=== PATIENT | female | born 1975 | race Caucasian/White ===

== ENCOUNTER 2016-12-13 18:56 | Emergency (ER) | payer MEDICAID ==
[~2016-12-13] VITALS: Ht 162.6 cm; Wt 66.7 kg
[2016-12-13] MEDS ORDERED: KETOROLAC TROMETHAMINE INJ 30 MG/ML VIAL ONE (20:26)
[2016-12-13] MEDS ORDERED: METOCLOPRAMIDE HCL 10 MG/2 ML VIAL ONE (20:26)
[2016-12-13] MEDS ORDERED: diphenhydrAMINE HCL 50 MG/ML VIAL ONE (20:26)
[2016-12-13] MEDS ORDERED: KETOROLAC TROMETHAMINE INJ 30 MG/ML VIAL IV ONE (20:30)
[2016-12-13] MEDS ORDERED: diphenhydrAMINE HCL 50 MG/ML VIAL IV ONE (20:30)
[2016-12-13] MEDS ORDERED: METOCLOPRAMIDE HCL 10 MG/2 ML VIAL IV ONE (20:30)
[2016-12-13 21:06] VITALS: BP 130/81
== END 2016-12-13 21:08 | disposition home or self-care (01) ==
LOC: ER 19:00
DX: R51 Headache (principal)
CPT/HCPCS: 84703; 96374; 96375; 99284; A4606; J1200 ×2; J1885 ×2; J2765 ×2; Z7610

== ENCOUNTER 2023-02-19 21:01 | Emergency (ER) | payer MEDICAID ==
[~2023-02-19] VITALS: Ht 129.5 cm; Wt 68.0 kg
--- NOTE | 2023-02-19 22:10 | NUR ---
Pt is noted alert, responsive as she is brought in for C/O Right Leg and Back pain due to S/P Slip and fall at home. Pt care continue as orders noted for X-Ray off Bilateral Hips and also Motrin 800mg PO to be given after been seen by .
[2023-02-19] MEDS ORDERED: IBUPROFEN 400 MG TABLET ONE (22:11)
--- NOTE | 2023-02-19 22:15 | NUR ---
Motrin 800mg PO given as ordered. Pt care continue.
[2023-02-19] MEDS ORDERED: IBUPROFEN 400 MG TABLET PO ONE (22:30)
[2023-02-19] MEDS ORDERED: IBUP-1953 PO (22:46)
[2023-02-19 22:55] VITALS: BP 112/71
== END 2023-02-19 22:57 | disposition home or self-care (01) ==
LOC: ER 21:01
DX: M25.552 Pain in left hip (principal); M25.551 Pain in right hip; W01.0XXA Fall on same level from slipping, tripping and stumbling without subsequent striking against object, initial encounter; Y93.89 Activity, other specified; Y92.89 Other specified places as the place of occurrence of the external cause; Y99.8 Other external cause status
CPT/HCPCS: 73521